=== PATIENT | male | born 1955 | race Caucasian/White ===

== ENCOUNTER 2024-09-14 15:46 | Outpatient (CLI) | payer MEDICARE, BC, SELFPAY | END 2024-09-14 15:47 | disposition home or self-care (01) | PROVIDERS: PCP Family Medicine; Visit Provider Family Medicine | DX: E78.5 Hyperlipidemia, unspecified (principal); I10 Essential (primary) hypertension; E03.9 Hypothyroidism, unspecified; Z12.5 Encounter for screening for malignant neoplasm of prostate | CPT/HCPCS: 80048; 80061; 84439; 84443; G0103 ==

== ENCOUNTER 2024-12-13 10:34 | Outpatient (CLI) | payer MEDICARE, BC, SELFPAY | END 2024-12-13 10:35 | disposition home or self-care (01) | LOC: NFLDREF 12-16 06:17 | PROVIDERS: PCP Family Medicine; Referring Provider Family Medicine; Visit Provider Family Medicine | DX: E03.9 Hypothyroidism, unspecified (principal) | CPT/HCPCS: 84443 ==